=== PATIENT | female | born 1930 | race Caucasian/White ===

== ENCOUNTER → 2018-04-05 | Outpatient (CLI) | payer MEDICARE ==
[~2018-04-05] MED LIST: AMLO5TAB7 PO; ASPI-1181 PO; CLOP75TA14 PO; HYDR12.54 PO; LEVO75TA10 PO; METO-408 PO; MULT1CAP32 PO; PREM3 PO; SIMV20TA6 PO; TYL3 PO
== END | disposition home or self-care (01) ==
LOC: SHCH 08:23
PROVIDERS: ATTEND Internal Medicine Cardiovascular Disease
DX: I70.0 Atherosclerosis of aorta (principal); I71.4 Abdominal aortic aneurysm, without rupture
CPT/HCPCS: 93978

== ENCOUNTER → 2018-12-03 | Outpatient (CLI) | payer MEDICARE ==
[~2018-12-03] MED LIST changes: -AMLO5TAB7 PO; +AMLO5TAB9 PO
== END | disposition home or self-care (01) ==
LOC: SHCH 07:52
PROVIDERS: ATTEND Internal Medicine Cardiovascular Disease
DX: I71.4 Abdominal aortic aneurysm, without rupture (principal); I25.9 Chronic ischemic heart disease, unspecified
CPT/HCPCS: 93975; 93978

== ENCOUNTER → 2018-12-11 | Outpatient (CLI) | payer MEDICARE | END | disposition home or self-care (01) | LOC: SHCH 13:37 | PROVIDERS: ATTEND Internal Medicine Cardiovascular Disease | DX: I08.0 Rheumatic disorders of both mitral and aortic valves (principal) | CPT/HCPCS: 93306 ==

== ENCOUNTER → 2018-12-31 | Outpatient (CLI) | payer MEDICARE ==
[~2018-12-31] MED LIST changes: +IOHEXOL 350 MG/ML 100ML INFUS..BTL IV ONE; +IOHEXOL-350 50ML VIAL IV ONE
== END | disposition home or self-care (01) ==
LOC: RAH 08:23
PROVIDERS: ATTEND Internal Medicine Cardiovascular Disease
DX: M47.815 Spondylosis without myelopathy or radiculopathy, thoracolumbar region (principal); K80.20 Calculus of gallbladder without cholecystitis without obstruction; I70.0 Atherosclerosis of aorta; I70.203 Unspecified atherosclerosis of native arteries of extremities, bilateral legs; N28.1 Cyst of kidney, acquired
CPT/HCPCS: 75635; Q9967 ×2

== ENCOUNTER 2019-02-21 05:48 | Day surgery (SDC) | payer MEDICARE ==
[2019-02-19 11:21] VITALS: BP 178/71
[2019-02-19 11:30] LABS: BASOPHILS % (AUTO) 0.2 % (0.0-5.0); EOSINOPHILS % (AUTO) 0.8 % (0.0-8.0); HEMATOCRIT 43.8 % (36-48); LYMPHOCYTES % (AUTO) 15.3 % (21.0-51.0); MEAN CORPUSCULAR HEMOGLOBIN 28.9 pg (27.0-33.0); MEAN CORPUSCULAR HGB CONC 32.7 g/dL (32.0-36.0); MEAN CORPUSCULAR VOLUME 88.2 fL (79-99); MONOCYTES % (AUTO) 7.6 % (3.0-13.0); NEUTROPHILS % (AUTO) 76.1 % (40.0-77.0); PLATELET COUNT (AUTO) 284 K/uL (130-400); RED BLOOD CELL COUNT(AUTO) 4.96 MIL/uL (4.00-5.50); RED CELL DISTRIBUTION WIDTH 14.1 % (11.0-15.5); WHITE BLOOD COUNT (AUTO) 7.2 K/uL (4.8-10.8)
[2019-02-19 11:32] LABS: APPEARANCE,URINE Clear (CLEAR); BILIRUBIN,URINE Negative (NEGATIVE); COLOR,URINE Yellow (YELLOW); GLUCOSE, URINE (UA) Negative (NEGATIVE); KETONES,URINE Negative (NEGATIVE); LEUKOCYTE ESTERASE ,URINE Trace (NEGATIVE); NITRATE,URINE Negative (NEGATIVE); OCCULT BLOOD,URINE Negative (NEGATIVE); PROTEIN,URINE POS 2+ mg/dL (NEGATIVE)
[2019-02-19 11:40] LABS: CREATININE 1.4 mg/dL (0.5-1.5); POTASSIUM 4.9 mmol/L (3.5-5.1)
[2019-02-19 11:41] LABS: INR 0.97 (0.85-1.15); PARTIAL THROMBOPLASTIN TIME 25.2 SEC (26.3-35.5); PROTHROMBIN TIME 10.2 SEC (9.6-11.6)
[2019-02-19 11:47] LABS: BACTERIA,URINE Rare /HPF (None Seen); RBC,URINE 0-1 /HPF (0-1); SQUAMOUS EPITHELIAL CELL,UR Rare /HPF (0-2); WBC,URINE 0-1 /HPF (0-1)
--- NOTE | 2019-02-20 15:10 | NUR ---
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
[~2019-02-21] VITALS: Ht 154.9 cm; Wt 46.4 kg
[2019-02-21] VITALS (13 sets, daily range): BP systolic 145–177; BP diastolic 57–75
[~2019-02-21 05:48] MED LIST changes: +ACET-2743 PO; +ERGO500014 PO; -IOHEXOL 350 MG/ML 100ML INFUS..BTL IV ONE; -IOHEXOL-350 50ML VIAL IV ONE; -MULT1CAP32 PO; -PREM3 PO; -TYL3 PO
[2019-02-21] MEDS ORDERED: SODIUM CHLORIDE 0.9% 1000ML 1,000 ML IV SCH ×3 (06:00→13:02)
[2019-02-21] MEDS ORDERED: SODIUM BICARB 50MEQ 50ML VIAL ONE (11:05)
[2019-02-21] MEDS ORDERED: HEPARIN SODIUM 1000UNIT/ML 10ML VIAL ONE (11:05)
[2019-02-21] MEDS ORDERED: NITROGLYCERIN 5 MG/ML 10 ML VIAL IV ONE (11:06)
[2019-02-21] MEDS ORDERED: IOHEXOL-350 50ML VIAL IV ONE (11:06)
[2019-02-21] MEDS ORDERED: IOHEXOL 350 MG/ML 100ML INFUS..BTL IV ONE ×2 (11:06→12:46)
[2019-02-21] MEDS ORDERED: LIDOCAINE HCL 2% 20ML ONE (11:06)
[2019-02-21] MEDS ORDERED: MIDAZOLAM HCL 1 MG/ML 2ML VIAL ONE ×2 (11:41→12:25)
[2019-02-21] MEDS ORDERED: MEPERIDINE-PF 25 MG/ML SYG ONE ×2 (11:41→12:25)
[2019-02-21] MEDS ORDERED: VERAPAMIL HCL 2.5 MG/ML VIAL ONE (11:42)
[2019-02-21] MEDS ORDERED: ONDANSETRON HCL 4 MG/2 ML VIAL IVP PRN (13:15)
[2019-02-21] MEDS ORDERED: HYDRALAZINE HCL 20 MG/ML VIAL ONE (15:27)
--- NOTE | 2019-02-21 16:50 | NUR ---
REPORT REPORT GIVEN TO GERARD BELTRAN. PT STABLE. NO COMPLAINTS MADE. TOLERATED DIET WELL. DISCHARGE INSTRUCTIONS GIVEN TO SON EARLIER, DEMONSTRATED ON HOW TO MONITOR CATH SITE FOR BLEEDING, HEMATOMA, APPLY DIRECT PRESSURE, CALL 911. VERBALIZED UNDERSTANDING.
[2019-02-21] MEDS ORDERED: HYDRALAZINE HCL 20 MG/ML VIAL IV ONE (17:00)
== END 2019-02-21 17:35 | disposition home or self-care (01) ==
LOC: DAH 05:48
PROVIDERS: ATTEND Internal Medicine Cardiovascular Disease
DX: I70.1 Atherosclerosis of renal artery (principal); I70.8 Atherosclerosis of other arteries; I77.4 Celiac artery compression syndrome; I25.10 Atherosclerotic heart disease of native coronary artery without angina pectoris; I73.9 Peripheral vascular disease, unspecified; I10 Essential (primary) hypertension; E78.00 Pure hypercholesterolemia, unspecified; F17.210 Nicotine dependence, cigarettes, uncomplicated; J44.9 Chronic obstructive pulmonary disease, unspecified; M19.90 Unspecified osteoarthritis, unspecified site; Z88.0 Allergy status to penicillin; Z88.8 Allergy status to other drugs, medicaments and biological substances; Z88.1 Allergy status to other antibiotic agents; Z79.899 Other long term (current) drug therapy; Z79.01 Long term (current) use of anticoagulants; Z79.82 Long term (current) use of aspirin; Z98.890 Other specified postprocedural states; Z72.89 Other problems related to lifestyle; Z82.49 Family history of ischemic heart disease and other diseases of the circulatory system; Z83.3 Family history of diabetes mellitus; Z82.5 Family history of asthma and other chronic lower respiratory diseases
CPT/HCPCS: 36245 ×2; 36252; 36415 ×2; 37236; 71045; 75726 ×2; 80048; 81001; 85025; 85347; 85610; 85730; 93005; A4606; A4649; C1769 ×3; C1876; C1887; C1894; J0360; J1644 ×2; J2175 ×2; J2250 ×2; J3490 ×4; J7030; Q9967 ×2; 99156; 99157